=== PATIENT | female | born 1950 | race Caucasian/White ===

== ENCOUNTER 2022-07-04 01:57 | Emergency (ER) | payer SELFPAY ==
[~2022-07-04] VITALS: Ht 167.6 cm; Wt 82.0 kg
[2022-07-04 02:02] VITALS: BP 133/58
== END 2022-07-04 03:31 | disposition left against medical advice (07) ==
LOC: ER 02:31
DX: R51.9 Headache, unspecified (principal); I10 Essential (primary) hypertension; E11.9 Type 2 diabetes mellitus without complications; Z86.73 Personal history of transient ischemic attack (TIA), and cerebral infarction without residual deficits
CPT/HCPCS: 93005; 99283

== ENCOUNTER 2022-07-27 17:37 | Inpatient (IN) | payer MEDICARE, MEDICAID ==
[~2022-07-27] VITALS: Ht 160 cm; Wt 73.0 kg
[2022-07-27] MEDS ORDERED: MORPHINE SULFATE 4 MG/ML CPJ (NOT FOR IM USE) IV ONE (18:45)
[2022-07-27 18:59] LABS: BASOPHILS % 1.4 % (0.0-2.0); EOSINOPHILS % 2.4 % (0.0-5.0); HEMATOCRIT. 42.5 % (36.0-48.0); HEMOGLOBIN. 14.3 g/dL (12.0-16.0); LYMPHOCYTES % 23.7 % (20.0-50.0); MEAN CORPUSCULAR HEMOGLOBIN 29.1 pg (28.0-32.0); MEAN CORPUSCULAR VOLUME 86.7 fL (81.0-99.0); MEAN PLATELET VOLUME 8.3 fl (7.4-10.4); MONOCYTES % 6.2 % (2.0-8.0); NEUTROPHILS % 66.3 % (40.0-76.0); PLATELET 212 x1000/uL (130-400); RED CELL DISTRIBUTION WIDTH 17.1 % (11.6-14.6)
[2022-07-27 19:10] LABS: CHLORIDE 112 mEq/L (98-107)
[2022-07-27] MEDS ORDERED: KETOROLAC 15MG/ML VIAL IV ONE (22:00)
[2022-07-27] MEDS ORDERED: SODIUM CHLORIDE 0.9% 1,000 ML IV ONE (22:30)
[2022-07-27] MEDS ORDERED: MECLIZINE 25MG TABLET PO ONE (22:30)
[2022-07-27] MEDS ORDERED: IOHEXOL-300 100 ML BOTTLE ONE (23:25)
[2022-07-28] MEDS ORDERED: MAGNESIUM/ALUMINUM HYDROXIDE/SIMETHICONE 30ML UDC PO PRN (01:15)
[2022-07-28] MEDS ORDERED: GUAIFENESIN 200MG/10ML SUGAR FREE UDC PO PRN (01:15)
[2022-07-28] MEDS ORDERED: ACETAMINOPHEN 325MG TABLET PO PRN ×2 (01:15)
[2022-07-28] MEDS ORDERED: IPRATROPIUM/ALBUTEROL 0.5-3(2.5)MG/3ML NEB NEB PRN (01:15)
[2022-07-28] MEDS ORDERED: CLONIDINE 0.1MG TABLET PO PRN (01:15)
[2022-07-28] MEDS ORDERED: ONDANSETRON HCL 4MG/2ML INJ IV PRN (01:15)
[2022-07-28] MEDS ORDERED: NALOXONE HCL 0.4MG/ML VIAL IV PRN (01:45)
[2022-07-28 03:55] LABS: BASOPHILS % 0.5 % (0.0-2.0); EOSINOPHILS % 3.5 % (0.0-5.0); HEMATOCRIT. 44.5 % (36.0-48.0); HEMOGLOBIN. 14.6 g/dL (12.0-16.0); LYMPHOCYTES % 27.2 % (20.0-50.0); MEAN CORPUSCULAR HEMOGLOBIN 28.8 pg (28.0-32.0); MEAN CORPUSCULAR VOLUME 87.8 fL (81.0-99.0); MEAN PLATELET VOLUME 8.6 fl (7.4-10.4); MONOCYTES % 8.3 % (2.0-8.0); NEUTROPHILS % 60.5 % (40.0-76.0); PLATELET 213 x1000/uL (130-400); RED BLOOD CELL COUNT 5.07 mill/uL (4.2-5.4); RED CELL DISTRIBUTION WIDTH 17.3 % (11.6-14.6)
[2022-07-28 04:05] LABS: CHLORIDE 114 mEq/L (98-107)
[2022-07-28 04:21] LABS: PHOSPHORUS 3.4 mg/dL (2.5-4.9); T4 FREE 0.82 ng/dL (0.76-1.46)
[2022-07-28] MEDS ORDERED: MECLIZINE 25MG TABLET PO SCH (08:00)
[2022-07-28] MEDS ORDERED: KETOROLAC 15MG/ML VIAL IV SCH (08:00)
[2022-07-28 10:00] VITALS: BP 127/60
[2022-07-28] MEDS ORDERED: ENAL1TAB14 MT (11:12)
[2022-07-28] MEDS ORDERED: LANTUSUD SUBCUT (11:13)
[2022-07-28] MEDS ORDERED: METF-874 MT (11:13)
[2022-07-28] MEDS ORDERED: ATOR10TA69 MT (11:13)
[2022-07-28] MEDS ORDERED: DULA0.75 SQ (11:14)
[2022-07-28 12:00] VITALS: BP 127/60
[2022-07-28] MEDS: KETOROLAC 15MG/ML VIAL IV PRN ×2 (15:41→21:30)
[2022-07-28 16:00] VITALS: BP 132/60
[2022-07-28 20:00] VITALS: BP 130/69
[2022-07-28] MEDS ORDERED: MAGNESIUM HYDROXIDE 400MG/5ML 30ML UDC PO PRN (20:15)
[2022-07-28] MEDS ORDERED: SENNOSIDES/DOCUSATE SOD 8.6/50MG TABLET PO PRN (20:15)
[2022-07-28] MEDS ORDERED: POTASSIUM CHLORIDE 20MEQ TABLET SR PO NR (21:15)
[2022-07-28] MEDS: LORATADINE 10MG TABLET PO SCH (21:49)
[2022-07-29] VITALS: BP 114/85
[2022-07-29 04:00] VITALS: BP 121/82
[2022-07-29] MEDS: KETOROLAC 15MG/ML VIAL IV PRN ×2 (06:25→16:02)
[2022-07-29 08:00] VITALS: BP 132/61
[2022-07-29] MEDS: POLYETHYLENE GLYCOL 3350 (17GM) 1 DOSE PACK PO SCH (08:27)
[2022-07-29] MEDS ORDERED: DEXTROSE 50% WATER 50ML SYRINGE IV PRN (10:00)
[2022-07-29 12:00] VITALS: BP 143/79
[2022-07-29] MEDS: BLOOD SUGAR DIAGNOSTIC STRIP TEST SCH ×3 (13:01→21:00)
[2022-07-29] MEDS: INSULIN LISPRO 100 UNITS/ML SUBCUT SCH ×3 (13:30→20:41)
[2022-07-29 16:00] VITALS: BP 114/69
[2022-07-29 20:00] VITALS: BP 118/80
[2022-07-29] MEDS: ATORVASTATIN CALCIUM 10MG TABLET PO SCH (20:40)
[2022-07-29] MEDS: LORATADINE 10MG TABLET PO SCH (20:40)
[2022-07-30] VITALS: BP 135/78
[2022-07-30] MEDS ORDERED: SORBITOL 70% SOLN 30ML PO PRN (00:15)
[2022-07-30] MEDS: KETOROLAC 15MG/ML VIAL IV PRN ×3 (00:28→18:13)
[2022-07-30] MEDS: SENNOSIDES/DOCUSATE SOD 8.6/50MG TABLET PO SCH ×3 (00:33→17:00)
[2022-07-30 04:00] VITALS: BP 128/90
[2022-07-30 06:50] LABS: BASOPHILS % 0.6 % (0.0-2.0); EOSINOPHILS % 5.6 % (0.0-5.0); HEMATOCRIT. 46.3 % (36.0-48.0); HEMOGLOBIN. 15.1 g/dL (12.0-16.0); LYMPHOCYTES % 26.8 % (20.0-50.0); MEAN CORPUSCULAR HEMOGLOBIN 28.8 pg (28.0-32.0); MEAN CORPUSCULAR VOLUME 88.5 fL (81.0-99.0); MEAN PLATELET VOLUME 8.9 fl (7.4-10.4); MONOCYTES % 7.1 % (2.0-8.0); NEUTROPHILS % 59.9 % (40.0-76.0); PLATELET 206 x1000/uL (130-400); RED BLOOD CELL COUNT 5.24 mill/uL (4.2-5.4); RED CELL DISTRIBUTION WIDTH 16.9 % (11.6-14.6)
[2022-07-30] MEDS: BLOOD SUGAR DIAGNOSTIC STRIP TEST SCH ×4 (07:20→21:00)
[2022-07-30 08:00] VITALS: BP 141/71
[2022-07-30 08:15] LABS: CHLORIDE 110 mEq/L (98-107)
[2022-07-30 08:23] LABS: HDL CHOLESTEROL 38 mg/dL (40-59); LDL CHOLESTEROL 106 mg/dL (5-100); PHOSPHORUS 2.6 mg/dL (2.5-4.9)
[2022-07-30] MEDS: POLYETHYLENE GLYCOL 3350 (17GM) 1 DOSE PACK PO SCH (09:28)
[2022-07-30] MEDS: HYDROCODONE/ACETAMINOPHEN 5/325MG TABLET PO PRN ×2 (09:28→09:32)
[2022-07-30] MEDS: INSULIN LISPRO 100 UNITS/ML SUBCUT SCH ×3 (11:06→18:21)
[2022-07-30 12:00] VITALS: BP 124/67
[2022-07-30 16:00] VITALS: BP 102/54
[2022-07-30] MEDS ORDERED: DICL100G31 TP (17:13)
[2022-07-30] MEDS ORDERED: DICL50TA9 PO (17:13)
[2022-07-30] MEDS ORDERED: TOPUD PO (17:13)
[2022-07-30] MEDS: LORATADINE 10MG TABLET PO SCH (20:59)
[2022-07-30] MEDS: ATORVASTATIN CALCIUM 10MG TABLET PO SCH (21:00)
[2022-07-30 21:51] VITALS: BP 102/54
[2022-08-01 15:08] LABS: FOLIC ACID (FOLATE) SERUM 12.8 ng/mL (>5.38)
== END 2022-07-30 23:06 | disposition home health service (06) | DRG 641 ==
LOC: ER 17:37 → 6EST 07-28 01:01 → SUPCPDRO 07-28 01:03 → EDBEDREQSVC 07-28 01:07 → EDBEDREQTM 07-28 01:07 → EDBEDREQ 07-28 01:07
PROVIDERS: ADMIT Internal Medicine; ATTEND Internal Medicine
DX: E86.0 Dehydration (principal); M25.511 Pain in right shoulder; M25.521 Pain in right elbow; M48.02 Spinal stenosis, cervical region; I10 Essential (primary) hypertension; E78.00 Pure hypercholesterolemia, unspecified; Z20.822 Contact with and (suspected) exposure to COVID-19; E11.9 Type 2 diabetes mellitus without complications; G89.4 Chronic pain syndrome; M48.03 Spinal stenosis, cervicothoracic region; M51.36 Other intervertebral disc degeneration, lumbar region; R26.89 Other abnormalities of gait and mobility; M48.061 Spinal stenosis, lumbar region without neurogenic claudication; J44.9 Chronic obstructive pulmonary disease, unspecified; M25.78 Osteophyte, vertebrae; Z90.49 Acquired absence of other specified parts of digestive tract; Z98.1 Arthrodesis status; Z86.79 Personal history of other diseases of the circulatory system; Z86.73 Personal history of transient ischemic attack (TIA), and cerebral infarction without residual deficits; W18.30XA Fall on same level, unspecified, initial encounter; Y93.89 Activity, other specified; Y92.89 Other specified places as the place of occurrence of the external cause; Y99.8 Other external cause status
CPT/HCPCS: 36415; 70486; 71045; 71260; 72141; 72146; 72148; 72170; 73030; 73080; 73090; 73110; 73120; 73630; 74177; 80048; 80053; 80061; 82607; 82746; 82962; 83036; 83735; 83880; 84100; 84439; 84443; 84484; 85025; 87426; 93005; 99291; J1815; J1885; J2270; J7030; J8597; Q9967

== ENCOUNTER 2022-10-02 13:30 | Inpatient (IN) | payer MEDICARE, MEDICAID ==
[~2022-10-02] VITALS: Ht 157.5 cm; Wt 71.2 kg
[~2022-10-02 13:30] MED LIST: ATOR10TA69 MT; DICL100G31 TP; DICL50TA9 PO; DULA0.75 SQ; ENAL1TAB14 MT; LANTUSUD SUBCUT; METF-874 MT; TOPUD PO
[2022-10-02] MEDS ORDERED: ACETAMINOPHEN 325MG TABLET PO ONE (14:00)
[2022-10-02 15:57] LABS: CLARITY URINE CLEAR (CLEAR); COLOR URINE YELLOW (YELLOW); KETONES URINE TRACE (NEGATIVE); LEUKOCYTE ESTERASE URINE TRACE (NEGATIVE); NITRITE URINE NEGATIVE (NEGATIVE); OCCULT BLOOD URINE NEGATIVE (NEGATIVE); PROTEIN URINE NEGATIVE (NEGATIVE); SPECIFIC GRAVITY URINE 1.031 (1.005-1.030); UROBILINOGEN URINE 0.2 E.U./dL (0.2-1.0)
[2022-10-02] MEDS ORDERED: ACETAMINOPHEN 325MG TABLET PO NR (16:00)
[2022-10-02 16:13] LABS: BASOPHILS % 0.4 % (0.0-2.0); EOSINOPHILS % 1.9 % (0.0-5.0); HEMATOCRIT. 41.6 % (36.0-48.0); HEMOGLOBIN. 13.8 g/dL (12.0-16.0); LYMPHOCYTES % 20.8 % (20.0-50.0); MEAN CORPUSCULAR HEMOGLOBIN 30.3 pg (28.0-32.0); MEAN CORPUSCULAR VOLUME 91.5 fL (81.0-99.0); MEAN PLATELET VOLUME 8.6 fl (7.4-10.4); MONOCYTES % 8.5 % (2.0-8.0); NEUTROPHILS % 68.4 % (40.0-76.0); PLATELET 217 x1000/uL (130-400); RED BLOOD CELL COUNT 4.54 mill/uL (4.2-5.4); RED CELL DISTRIBUTION WIDTH 16.2 % (11.6-14.6)
[2022-10-02 16:18] LABS: CHLORIDE 107 mEq/L (98-107)
[2022-10-02 16:21] LABS: *AMPHETAMINES SCREEN URINE NEGATIVE (NEGATIVE); *BARBITURATES SCREEN URINE NEGATIVE (NEGATIVE); *BENZODIAZEPINES SCREEN URINE NEGATIVE (NEGATIVE); *COCAINE SCREEN URINE NEGATIVE (NEGATIVE); CANNABINOID URINE SCREEN NEGATIVE (NEGATIVE); METHADONE URINE SCREEN NEGATIVE (NEGATIVE); OPIATES URINE SCREEN PRESUMTIVE POSITIVE (NEGATIVE); PHENCYCLIDINE URINE SCREEN NEGATIVE (NEGATIVE)
[2022-10-02 17:36] LABS: CREATINE KINASE 409 IU/L (26-192)
[2022-10-02 17:46] LABS: ETHANOL BLOOD < 10 mg/dL
[2022-10-02] MEDS: INSULIN LISPRO 100 UNITS/ML SUBCUT SCH (18:20)
[2022-10-02] MEDS ORDERED: MAGNESIUM/ALUMINUM HYDROXIDE/SIMETHICONE 30ML UDC PO PRN (18:30)
[2022-10-02] MEDS ORDERED: DOCUSATE SODIUM 100MG CAPSULE PO PRN (18:30)
[2022-10-02] MEDS ORDERED: IPRATROPIUM/ALBUTEROL 0.5-3(2.5)MG/3ML NEB NEB PRN (18:30)
[2022-10-02] MEDS ORDERED: DEXTROSE 50% WATER 50ML SYRINGE IV PRN (18:30)
[2022-10-02] MEDS ORDERED: GUAIFENESIN 200MG/10ML SUGAR FREE UDC PO PRN (18:30)
[2022-10-02] MEDS ORDERED: CLONIDINE 0.1MG TABLET PO PRN (18:30)
[2022-10-02] MEDS ORDERED: CEFTRIAXONE 1 G PREMIX 50 ML IV SCH (18:30)
[2022-10-02] MEDS ORDERED: ACETAMINOPHEN 325MG TABLET PO PRN ×2 (18:30)
[2022-10-02] MEDS ORDERED: NALOXONE HCL 0.4MG/ML VIAL IV PRN (18:45)
[2022-10-02] MEDS: ENOXAPARIN 40MG/0.4ML SYR SUBCUT SCH (20:28)
[2022-10-02 23:08] VITALS: BP 161/90
[2022-10-02 23:13] VITALS: BP 161/90
[2022-10-03] VITALS (8 sets, daily range): BP systolic 128–188; BP diastolic 52–107
[2022-10-03] MEDS: BLOOD SUGAR DIAGNOSTIC STRIP TEST SCH ×4 (06:52→21:00)
[2022-10-03] MEDS: INSULIN LISPRO 100 UNITS/ML SUBCUT SCH ×4 (06:53→21:00)
[2022-10-03 08:18] LABS: BASOPHILS % 0.6 % (0.0-2.0); EOSINOPHILS % 5.7 % (0.0-5.0); HEMATOCRIT. 40.4 % (36.0-48.0); HEMOGLOBIN. 13.5 g/dL (12.0-16.0); LYMPHOCYTES % 32.5 % (20.0-50.0); MEAN CORPUSCULAR HEMOGLOBIN 30.2 pg (28.0-32.0); MEAN CORPUSCULAR VOLUME 90.5 fL (81.0-99.0); MONOCYTES % 8.2 % (2.0-8.0); PLATELET 190 x1000/uL (130-400); RED BLOOD CELL COUNT 4.47 mill/uL (4.2-5.4); RED CELL DISTRIBUTION WIDTH 16.4 % (11.6-14.6)
[2022-10-03] MEDS: HYDROCODONE/ACETAMINOPHEN 5/325MG TABLET PO PRN ×2 (08:36→16:06)
[2022-10-03 09:55] LABS: CHLORIDE 107 mEq/L (98-107)
[2022-10-03 10:15] LABS: T4 FREE 0.97 ng/dL (0.76-1.46)
[2022-10-03 10:28] LABS: VITAMIN B12 SERUM 395 pg/mL (211-911)
[2022-10-03] MEDS ORDERED: POTASSIUM CHLORIDE 20MEQ TABLET SR PO NR (10:30)
[2022-10-03] MEDS: DICLOFENAC SODIUM 1% GEL 50GM TOP SCH ×4 (10:50→20:50)
[2022-10-03] MEDS ORDERED: *PATIENT'S OWN MEDICATION STORAGE XX SCH (15:45)
[2022-10-03] MEDS: LIDOCAINE 5% PATCH TOP SCH (16:27)
[2022-10-03] MEDS ORDERED: MORPHINE SULFATE 2 MG/ML CPJ (NOT FOR IM USE) IV NR (16:47)
[2022-10-03] MEDS: CEFTRIAXONE 1,000 MG in DEXTROSE 5% WATER 50 ML IV SCH (17:45)
[2022-10-03] MEDS: HYDROCODONE/ACETAMINOPHEN 10/325MG TABLET PO PRN (20:49)
[2022-10-03] MEDS: ENOXAPARIN 40MG/0.4ML SYR SUBCUT SCH (20:50)
[2022-10-03] MEDS ORDERED: PNEUMOCOCCAL 23-VAL P-SAC VAC 0.5 ML IM ONE (21:00)
[2022-10-04] VITALS: BP 146/65
[2022-10-04] MEDS ORDERED: MORPHINE SULFATE 2 MG/ML CPJ (NOT FOR IM USE) IV NR
[2022-10-04] MEDS: HYDROCODONE/ACETAMINOPHEN 10/325MG TABLET PO PRN ×3 (02:51→16:09)
[2022-10-04 04:00] VITALS: BP 175/76
[2022-10-04] MEDS: HYDROCODONE/ACETAMINOPHEN 5/325MG TABLET PO PRN ×2 (05:42→10:43)
[2022-10-04] MEDS: BLOOD SUGAR DIAGNOSTIC STRIP TEST SCH ×4 (06:31→21:33)
[2022-10-04] MEDS: INSULIN LISPRO 100 UNITS/ML SUBCUT SCH ×4 (06:58→21:33)
[2022-10-04 07:53] LABS: BASOPHILS % 0.7 % (0.0-2.0); EOSINOPHILS % 6.2 % (0.0-5.0); HEMOGLOBIN. 13.4 g/dL (12.0-16.0); LYMPHOCYTES % 40.4 % (20.0-50.0); MEAN CORPUSCULAR HEMOGLOBIN 30.3 pg (28.0-32.0); MEAN CORPUSCULAR VOLUME 90.5 fL (81.0-99.0); MEAN PLATELET VOLUME 8.8 fl (7.4-10.4); MONOCYTES % 10.2 % (2.0-8.0); NEUTROPHILS % 42.5 % (40.0-76.0); PLATELET 193 x1000/uL (130-400); RED BLOOD CELL COUNT 4.42 mill/uL (4.2-5.4); RED CELL DISTRIBUTION WIDTH 16.1 % (11.6-14.6)
[2022-10-04 08:00] VITALS: BP 147/69
[2022-10-04 08:45] LABS: CHLORIDE 110 mEq/L (98-107)
[2022-10-04 08:52] LABS: CREATINE KINASE 236 IU/L (26-192)
[2022-10-04] MEDS: DICLOFENAC SODIUM 1% GEL 50GM TOP SCH ×4 (08:56→21:34)
[2022-10-04] MEDS: LIDOCAINE 5% PATCH TOP SCH (09:00)
[2022-10-04] MEDS ORDERED: AMLO10TA80 PO (09:09)
[2022-10-04] MEDS ORDERED: QUET50TA23 PO (09:12)
[2022-10-04] MEDS ORDERED: ENAL20TA18 PO (09:12)
[2022-10-04] MEDS ORDERED: AMIT75TA2 PO (09:12)
[2022-10-04] MEDS ORDERED: PREG75CA75 PO (09:12)
[2022-10-04] MEDS ORDERED: MIRT-89 PO (09:12)
[2022-10-04] MEDS: AMLODIPINE 10MG TABLET PO SCH (09:46)
[2022-10-04 12:00] VITALS: BP 136/62
[2022-10-04] MEDS: GABAPENTIN 300MG CAPSULE PO SCH ×2 (13:11→21:32)
[2022-10-04] MEDS ORDERED: POLY119P2 MT (15:53)
[2022-10-04] MEDS ORDERED: HYDR-4009 PO (15:53)
[2022-10-04] MEDS ORDERED: SENN-178 MT (15:53)
[2022-10-04] MEDS ORDERED: ATOR10TA69 MT (15:53)
[2022-10-04] MEDS ORDERED: DICL100G31 TP (15:53)
[2022-10-04] MEDS ORDERED: DICL50TA9 PO (15:53)
[2022-10-04] MEDS ORDERED: LIDO700A30 TOP (15:53)
[2022-10-04 16:00] VITALS: BP 118/93
[2022-10-04] MEDS: CEFTRIAXONE 1,000 MG in DEXTROSE 5% WATER 50 ML IV SCH (17:15)
[2022-10-04 20:00] VITALS: BP 144/66
[2022-10-04] MEDS ORDERED: ENALAPRIL 5MG TABLET PO SCH (21:00)
[2022-10-04] MEDS: ENOXAPARIN 40MG/0.4ML SYR SUBCUT SCH (21:31)
[2022-10-04] MEDS: LISINOPRIL 40MG TABLET PO SCH (21:31)
[2022-10-04] MEDS: ONDANSETRON HCL 4MG/2ML INJ IV PRN (21:31)
[2022-10-05] VITALS: BP 119/81
[2022-10-05] MEDS: HYDROCODONE/ACETAMINOPHEN 10/325MG TABLET PO PRN ×2 (01:07→10:24)
[2022-10-05 04:00] VITALS: BP 120/54
[2022-10-05] MEDS: GABAPENTIN 300MG CAPSULE PO SCH ×3 (06:33→21:19)
[2022-10-05] MEDS: INSULIN LISPRO 100 UNITS/ML SUBCUT SCH ×3 (06:33→17:35)
[2022-10-05] MEDS: BLOOD SUGAR DIAGNOSTIC STRIP TEST SCH ×3 (06:42→16:42)
[2022-10-05 08:00] VITALS: BP 131/62
[2022-10-05] MEDS: ONDANSETRON HCL 4MG/2ML INJ IV PRN (08:59)
[2022-10-05] MEDS: AMLODIPINE 10MG TABLET PO SCH (09:44)
[2022-10-05] MEDS: DICLOFENAC SODIUM 1% GEL 50GM TOP SCH ×4 (09:44→21:20)
[2022-10-05] MEDS: LIDOCAINE 5% PATCH TOP SCH (09:48)
[2022-10-05 12:00] VITALS: BP 108/73
[2022-10-05 16:00] VITALS: BP 114/65
[2022-10-05] MEDS: CEFTRIAXONE 1,000 MG in DEXTROSE 5% WATER 50 ML IV SCH (17:34)
[2022-10-05 20:00] VITALS: BP 118/70
[2022-10-05] MEDS: ENOXAPARIN 40MG/0.4ML SYR SUBCUT SCH (21:20)
[2022-10-05] MEDS: LISINOPRIL 40MG TABLET PO SCH (21:20)
[2022-10-06] VITALS (7 sets, daily range): BP systolic 100–121; BP diastolic 53–70
[2022-10-06 02:41] LABS: CLARITY URINE CLEAR (CLEAR); COLOR URINE YELLOW (YELLOW); KETONES URINE 1+ (NEGATIVE); LEUKOCYTE ESTERASE URINE NEGATIVE (NEGATIVE); NITRITE URINE NEGATIVE (NEGATIVE); OCCULT BLOOD URINE NEGATIVE (NEGATIVE); PH URINE 6.5 (4.5-8.0); PROTEIN URINE NEGATIVE (NEGATIVE); SPECIFIC GRAVITY URINE 1.022 (1.005-1.030); UROBILINOGEN URINE 0.2 E.U./dL (0.2-1.0)
[2022-10-06] MEDS: GABAPENTIN 300MG CAPSULE PO SCH ×3 (06:24→21:18)
[2022-10-06] MEDS: HYDROCODONE/ACETAMINOPHEN 10/325MG TABLET PO PRN ×3 (06:24→21:19)
[2022-10-06 06:45] LABS: BASOPHILS % 0.4 % (0.0-2.0); EOSINOPHILS % 6.3 % (0.0-5.0); HEMATOCRIT. 43.7 % (36.0-48.0); HEMOGLOBIN. 14.3 g/dL (12.0-16.0); LYMPHOCYTES % 30.3 % (20.0-50.0); MEAN CORPUSCULAR HEMOGLOBIN 29.8 pg (28.0-32.0); MEAN CORPUSCULAR VOLUME 91.1 fL (81.0-99.0); MEAN PLATELET VOLUME 8.6 fl (7.4-10.4); PLATELET 187 x1000/uL (130-400); RED CELL DISTRIBUTION WIDTH 15.9 % (11.6-14.6)
[2022-10-06] MEDS ORDERED: *PATIENT'S OWN MEDICATION STORAGE XX SCH (07:00)
[2022-10-06 07:23] LABS: CHLORIDE 108 mEq/L (98-107)
[2022-10-06 07:28] LABS: PHOSPHORUS 3.3 mg/dL (2.5-4.9)
[2022-10-06] MEDS ORDERED: FLUCONAZOLE 100MG TABLET PO SCH (09:00)
[2022-10-06] MEDS: AMLODIPINE 10MG TABLET PO SCH (09:00)
[2022-10-06] MEDS: DICLOFENAC SODIUM 1% GEL 50GM TOP SCH ×4 (09:01→21:20)
[2022-10-06] MEDS: LIDOCAINE 5% PATCH TOP SCH (09:01)
[2022-10-06] MEDS: LISINOPRIL 40MG TABLET PO SCH (21:00)
[2022-10-06] MEDS: ENOXAPARIN 40MG/0.4ML SYR SUBCUT SCH (21:20)
== END 2022-10-06 22:16 | DRG 74 ==
LOC: ER 13:30 → 7EST 17:58 → EDBEDREQTM 18:08 → EDBEDREQ 18:08 → ENRESERV 20:00
PROVIDERS: ADMIT Internal Medicine; ATTEND Internal Medicine
DX: G90.8 Other disorders of autonomic nervous system (principal); S32.029A Unspecified fracture of second lumbar vertebra, initial encounter for closed fracture; M48.061 Spinal stenosis, lumbar region without neurogenic claudication; M47.896 Other spondylosis, lumbar region; M48.02 Spinal stenosis, cervical region; E10.9 Type 1 diabetes mellitus without complications; G89.29 Other chronic pain; M79.639 Pain in unspecified forearm; I10 Essential (primary) hypertension; E78.00 Pure hypercholesterolemia, unspecified; E78.5 Hyperlipidemia, unspecified; R53.81 Other malaise; Z79.899 Other long term (current) drug therapy; M47.819 Spondylosis without myelopathy or radiculopathy, site unspecified; K57.90 Diverticulosis of intestine, part unspecified, without perforation or abscess without bleeding; S62.306A Unspecified fracture of fifth metacarpal bone, right hand, initial encounter for closed fracture; Z87.891 Personal history of nicotine dependence; Z86.73 Personal history of transient ischemic attack (TIA), and cerebral infarction without residual deficits; Z86.79 Personal history of other diseases of the circulatory system; Z90.49 Acquired absence of other specified parts of digestive tract; Z98.1 Arthrodesis status; Z82.49 Family history of ischemic heart disease and other diseases of the circulatory system; W06.XXXA Fall from bed, initial encounter; Y93.89 Activity, other specified; Y92.003 Bedroom of unspecified non-institutional (private) residence as the place of occurrence of the external cause; Y99.8 Other external cause status
CPT/HCPCS: 36415; 71045; 72148; 72192; 73030; 73090; 73110; 73130; 73502; 73700; 74176; 80048; 80053; 80305; 80320; 81003; 82550; 82607; 82962; 83036; 83735; 83880; 84100; 84145; 84439; 84443; 85025; 87106; 90732; 93005; 97162; 97166; 99285; J0696; J1650; J1815; J2270; J2405; J7060; A4315; G0480

== ENCOUNTER 2023-02-28 21:57 | Emergency (ER) | payer MEDICARE, MEDICAID ==
[~2023-02-28] VITALS: Ht 160 cm; Wt 67.0 kg
[~2023-02-28 21:57] MED LIST changes: +AMIT75TA2 PO; +AMLO10TA80 PO; -ENAL1TAB14 MT; +ENAL20TA18 PO; +HYDR-4009 PO; +LIDO700A30 TOP; +MIRT-89 PO; +POLY119P2 MT; +PREG75CA75 PO; +QUET50TA23 PO; +SENN-178 MT
[2023-02-28] MEDS ORDERED: DIPHENHYDRAMINE 50MG/ML VIAL IV ONE (22:30)
[2023-02-28] MEDS ORDERED: METOCLOPRAMIDE HCL 10MG/2ML VIAL IV ONE (22:30)
[2023-02-28 22:54] LABS: BASOPHILS % 0.3 % (0.0-2.0); EOSINOPHILS % 4.1 % (0.0-5.0); HEMATOCRIT. 45.8 % (36.0-48.0); HEMOGLOBIN. 15.6 g/dL (12.0-16.0); LYMPHOCYTES % 23.9 % (20.0-50.0); MEAN CORPUSCULAR HEMOGLOBIN 30.7 pg (28.0-32.0); MEAN PLATELET VOLUME 8.7 fl (7.4-10.4); MONOCYTES % 7.3 % (2.0-8.0); NEUTROPHILS % 64.4 % (40.0-76.0); PLATELET 192 x1000/uL (130-400); RED BLOOD CELL COUNT 5.09 mill/uL (4.2-5.4); RED CELL DISTRIBUTION WIDTH 17.3 % (11.6-14.6)
[2023-02-28 22:56] LABS: CHLORIDE 110 mEq/L (98-107)
[2023-03-01 00:30] VITALS: BP 159/74
== END 2023-03-01 04:06 | disposition home or self-care (01) ==
LOC: ER 21:57
DX: R51.9 Headache, unspecified (principal); I10 Essential (primary) hypertension; E11.9 Type 2 diabetes mellitus without complications; E78.00 Pure hypercholesterolemia, unspecified; Z86.73 Personal history of transient ischemic attack (TIA), and cerebral infarction without residual deficits; Z79.899 Other long term (current) drug therapy
CPT/HCPCS: 36415; 70450; 71045; 80053; 84484; 85025; 93005; 96374; 96375; 99285; J1200; J2765

== ENCOUNTER 2023-04-29 15:16 | Emergency (ER) | payer MEDICARE, MEDICAID ==
[~2023-04-29] VITALS: Ht 162.6 cm; Wt 70.0 kg
[~2023-04-29 15:16] MED LIST changes: +ENAL-79 PO; -ENAL20TA18 PO
[2023-04-29 16:01] LABS: BASOPHILS % 0.5 % (0.0-2.0); EOSINOPHILS % 2.1 % (0.0-5.0); HEMATOCRIT. 49.7 % (36.0-48.0); HEMOGLOBIN. 16.7 g/dL (12.0-16.0); LYMPHOCYTES % 21.4 % (20.0-50.0); MEAN CORPUSCULAR HEMOGLOBIN 31.7 pg (28.0-32.0); MEAN CORPUSCULAR VOLUME 94.2 fL (81.0-99.0); MEAN PLATELET VOLUME 8.9 fl (7.4-10.4); MONOCYTES % 6.5 % (2.0-8.0); NEUTROPHILS % 69.5 % (40.0-76.0); PLATELET 228 x1000/uL (130-400); RED BLOOD CELL COUNT 5.28 mill/uL (4.2-5.4); RED CELL DISTRIBUTION WIDTH 15.4 % (11.6-14.6)
[2023-04-29 16:08] LABS: CHLORIDE 108 mEq/L (98-107)
[2023-04-29] MEDS ORDERED: ONDANSETRON 4MG ODT PO ONE (16:45)
[2023-04-29] MEDS ORDERED: ONDA4TAB50 MT (17:46)
[2023-04-29 18:10] VITALS: BP 129/96
[2023-04-30] MEDS ORDERED: DIPH1TAB24 MT (22:11)
[2023-04-30] MEDS ORDERED: ONDA4TAB50 MT (22:11)
[2023-04-30] MEDS ORDERED: TOPUD PO (22:11)
== END 2023-04-29 18:25 | disposition home or self-care (01) ==
LOC: ER 15:16
DX: K52.9 Noninfective gastroenteritis and colitis, unspecified (principal); E11.9 Type 2 diabetes mellitus without complications; E78.00 Pure hypercholesterolemia, unspecified; I10 Essential (primary) hypertension; Z86.73 Personal history of transient ischemic attack (TIA), and cerebral infarction without residual deficits; Z79.899 Other long term (current) drug therapy
CPT/HCPCS: 36415; 80053; 83690; 85025; 99283; Q0162

== ENCOUNTER 2023-04-30 15:17 | Emergency (ER) | payer MEDICARE, MEDICAID ==
[~2023-04-30] VITALS: Ht 152.4 cm; Wt 63.0 kg
[~2023-04-30 15:17] MED LIST changes: +ONDA4TAB50 MT
[2023-04-30] MEDS ORDERED: SODIUM CHLORIDE 0.9% 1000ML BAG (SEPSIS BOLUS) IV ONE (16:15)
[2023-04-30] MEDS ORDERED: CEFTRIAXONE SODIUM 1 G/VIAL IM ONE (16:15)
[2023-04-30 16:40] LABS: BASOPHILS % 0.6 % (0.0-2.0); HEMOGLOBIN. 15.8 g/dL (12.0-16.0); LYMPHOCYTES % 33.8 % (20.0-50.0); MEAN CORPUSCULAR HEMOGLOBIN 31.7 pg (28.0-32.0); MEAN CORPUSCULAR VOLUME 94.6 fL (81.0-99.0); MEAN PLATELET VOLUME 8.5 fl (7.4-10.4); NEUTROPHILS % 53.6 % (40.0-76.0); PLATELET 207 x1000/uL (130-400); RED BLOOD CELL COUNT 4.97 mill/uL (4.2-5.4); RED CELL DISTRIBUTION WIDTH 15.3 % (11.6-14.6)
[2023-04-30 16:44] LABS: PROTHROMBIN TIME 10.9 sec (9.6-11.0)
[2023-04-30 16:47] LABS: CHLORIDE 110 mEq/L (98-107)
[2023-04-30] MEDS ORDERED: CEFTRIAXONE 1GM PREMIX 50ML IV NR (17:15)
[2023-04-30] MEDS ORDERED: TOPUD PO (22:11)
[2023-04-30] MEDS ORDERED: DIPH1TAB24 MT (22:11)
[2023-04-30] MEDS ORDERED: ONDA4TAB50 MT (22:11)
[2023-04-30 22:24] VITALS: BP 158/87
== END 2023-04-30 22:37 | disposition home or self-care (01) ==
LOC: ER 15:17
DX: R19.7 Diarrhea, unspecified (principal); I10 Essential (primary) hypertension; E78.00 Pure hypercholesterolemia, unspecified; E11.9 Type 2 diabetes mellitus without complications; Z98.890 Other specified postprocedural states; Z20.822 Contact with and (suspected) exposure to COVID-19; Z79.899 Other long term (current) drug therapy; Z86.73 Personal history of transient ischemic attack (TIA), and cerebral infarction without residual deficits
CPT/HCPCS: 36415; 71045; 80053; 82962; 83605; 84145; 85025; 85610; 87040; 87426; 96365; 96366; 99284; C9803; J0696; J7030

== ENCOUNTER 2023-08-08 11:47 | Emergency (ER) | payer MEDICARE, MEDICAID ==
[~2023-08-08] VITALS: Ht 162.6 cm; Wt 78.0 kg
[~2023-08-08 11:47] MED LIST changes: -DICL100G31 TP; +DICL100G58 TP; +DIPH1TAB24 MT; -PREG75CA75 PO; +PREG75CA76 PO; -SENN-178 MT; +SENN-371 MT
[2023-08-08 11:50] VITALS: BP 158/90; PULSE 80; RESP 16; TEMP 98.3; O2SAT 96
[2023-08-08] MEDS ORDERED: HYDROCODONE/ACETAMINOPHEN 5/325MG TABLET PO ONE (15:15)
[2023-08-08] MEDS ORDERED: KETOROLAC 60MG/2ML VIAL IM ONE (15:15)
[2023-08-08] MEDS ORDERED: HYDR-4001 MT (17:11)
[2023-08-08] MEDS ORDERED: LIDO700A30 TOP (17:11)
[2023-08-08] MEDS ORDERED: DICL50TA9 PO (17:11)
== END 2023-08-08 19:31 | disposition home or self-care (01) ==
LOC: ER 11:47
DX: M47.816 Spondylosis without myelopathy or radiculopathy, lumbar region (principal); E11.9 Type 2 diabetes mellitus without complications; E78.00 Pure hypercholesterolemia, unspecified; I10 Essential (primary) hypertension; Z86.73 Personal history of transient ischemic attack (TIA), and cerebral infarction without residual deficits; Z79.899 Other long term (current) drug therapy; W06.XXXA Fall from bed, initial encounter; Y93.89 Activity, other specified; Y92.89 Other specified places as the place of occurrence of the external cause; Y99.8 Other external cause status
CPT/HCPCS: 72100; 96372; 99283

== ENCOUNTER 2023-09-08 02:03 | Emergency (ER) | payer MEDICARE, MEDICAID ==
[~2023-09-08] VITALS: Ht 162.6 cm; Wt 75.0 kg
[~2023-09-08 02:03] MED LIST changes: +HYDR-4001 MT
[2023-09-08 02:20] VITALS: O2SAT 99
[2023-09-08 03:06] LABS: BASOPHILS % 0.6 % (0.0-2.0); EOSINOPHILS % 4.8 % (0.0-5.0); HEMATOCRIT. 44.9 % (36.0-48.0); HEMOGLOBIN. 15.3 g/dL (12.0-16.0); LYMPHOCYTES % 24.5 % (20.0-50.0); MEAN CORPUSCULAR HEMOGLOBIN 31.9 pg (28.0-32.0); MEAN CORPUSCULAR HGB CONC 34.2 g/dL (31.0-37.0); MEAN CORPUSCULAR VOLUME 93.4 fL (81.0-99.0); MEAN PLATELET VOLUME 8.5 fl (7.4-10.4); MONOCYTES % 11.3 % (2.0-8.0); NEUTROPHILS % 58.8 % (40.0-76.0); PLATELET 167 x1000/uL (130-400); RED CELL DISTRIBUTION WIDTH 15.4 % (11.6-14.6); WHITE BLOOD COUNT 5.4 x1000/uL (4.5-11.0)
[2023-09-08 03:11] LABS: PROTHROMBIN TIME 10.6 sec (9.6-11.0)
[2023-09-08 03:20] LABS: CHLORIDE 112 mEq/L (98-107); INDEX HEMOLYSI 1 (1-3); INDEX ICTERIC 1 (1-4); INDEX LIPEMIC 1 (1-3); POTASSIUM 3.3 mEq/L (3.5-5.1); SODIUM 143 mEq/L (136-145)
[2023-09-08 03:30] LABS: ALANINE AMINOTRANSFERASE 30 IU/L (13-61); ALBUMIN 3.7 g/dL (3.4-5.0); ASPARTATE AMINOTRANSFERASE 33 IU/L (15-37); BILIRUBIN TOTAL 0.4 mg/dL (0.1-1.0); CALCIUM 8.6 mg/dL (8.5-10.1); CARBON DIOXIDE 24 mEq/L (21-32); CREATININE 0.6 mg/dL (0.6-1.3); GLUCOSE 174 mg/dL (70-105); PROTEIN TOTAL 7.3 g/dL (6.0-8.3); UREA NITROGEN BLOOD 13 mg/dL (7-21)
[2023-09-08] MEDS ORDERED: HYDROCODONE/ACETAMINOPHEN 5/325MG TABLET PO ONE (10:15)
[2023-09-08 11:10] LABS: CLARITY URINE CLOUDY (CLEAR); COLOR URINE YELLOW (YELLOW); GLUCOSE URINE 3+ (NEGATIVE); KETONES URINE NEGATIVE (NEGATIVE); LEUKOCYTE ESTERASE URINE NEGATIVE (NEGATIVE); NITRITE URINE NEGATIVE (NEGATIVE); OCCULT BLOOD URINE NEGATIVE (NEGATIVE); PROTEIN URINE TRACE (NEGATIVE); SPECIFIC GRAVITY URINE 1.045 (1.005-1.030)
[2023-09-08 11:23] VITALS: BP 145/84; PULSE 86; RESP 18; TEMP 98.2
[2023-09-08 11:27] LABS: BACTERIA URINE 4+; SQUAMOUS EPITHELIAL CELL URINE 1+ /lpf (RARE/1+); YEAST URINE NONE SEEN
== END 2023-09-08 11:24 | disposition home or self-care (01) ==
LOC: ER 02:29
DX: S40.811A Abrasion of right upper arm, initial encounter (principal); E11.9 Type 2 diabetes mellitus without complications; E78.00 Pure hypercholesterolemia, unspecified; I10 Essential (primary) hypertension; R42 Dizziness and giddiness; Z86.73 Personal history of transient ischemic attack (TIA), and cerebral infarction without residual deficits; Z79.899 Other long term (current) drug therapy; W18.39XA Other fall on same level, initial encounter; Y93.89 Activity, other specified; Y92.89 Other specified places as the place of occurrence of the external cause; Y99.8 Other external cause status
CPT/HCPCS: 36415; 71045; 72170; 73090; 74176; 80053; 81003; 85025; 99284

== ENCOUNTER 2023-11-22 22:51 | Emergency (ER) | payer MEDICARE, MEDICAID ==
[~2023-11-22] VITALS: Ht 165.1 cm; Wt 90.0 kg
[2023-11-22 23:15] VITALS: BP 176/82; PULSE 90; RESP 18; TEMP 98.5; O2SAT 99
[2023-11-23 00:37] LABS: BASOPHILS % 0.8 % (0.0-2.0); DIFFERENTIAL COMMENT 1; EOSINOPHILS % 1.8 % (0.0-5.0); HEMATOCRIT. 49.8 % (36.0-48.0); HEMOGLOBIN. 16.7 g/dL (12.0-16.0); LYMPHOCYTES % 35.6 % (20.0-50.0); MEAN CORPUSCULAR HEMOGLOBIN 32.3 pg (28.0-32.0); MEAN CORPUSCULAR HGB CONC 33.5 g/dL (31.0-37.0); MEAN CORPUSCULAR VOLUME 96.3 fL (81.0-99.0); MEAN PLATELET VOLUME 8.4 fl (7.4-10.4); MONOCYTES % 6.7 % (2.0-8.0); NEUTROPHILS % 55.1 % (40.0-76.0); PLATELET 207 x1000/uL (130-400); RED BLOOD CELL COUNT 5.17 mill/uL (4.2-5.4); RED CELL DISTRIBUTION WIDTH 15.7 % (11.6-14.6); WHITE BLOOD COUNT 8.2 x1000/uL (4.5-11.0)
[2023-11-23 00:42] LABS: ALANINE AMINOTRANSFERASE 21 IU/L (10-49); ALBUMIN 4.1 g/dL (3.2-4.8); ASPARTATE AMINOTRANSFERASE 21 IU/L (<34); BILIRUBIN TOTAL 0.2 mg/dL (0.1-1.0); CALCIUM 9.5 mg/dL (8.7-10.4); CARBON DIOXIDE 21 mEq/L (21-32); CHLORIDE 110 mEq/L (98-107); CREATININE 0.6 mg/dL (0.6-1.0); GLUCOSE 171 mg/dL (70-105); POTASSIUM 3.6 mEq/L (3.5-5.1); PROTEIN TOTAL 7.3 g/dL (6.0-8.3); SODIUM 142 mEq/L (136-145); TROPONIN I HIGH SENSITIVITY 8 ng/L (3.0-34); UREA NITROGEN BLOOD 11 mg/dL (9-23)
[2023-11-23 00:45] LABS: ETHANOL BLOOD < 10 mg/dL (<10)
== END 2023-11-23 07:12 | disposition home or self-care (01) ==
LOC: ER 22:51
DX: R73.9 Hyperglycemia, unspecified (principal); Z86.73 Personal history of transient ischemic attack (TIA), and cerebral infarction without residual deficits
CPT/HCPCS: 36415; 80053; 80320; 82962; 83880; 84484; 85025; 93005; 99284; G0480

== ENCOUNTER 2025-02-02 17:51 | Emergency (ER) | payer MEDICARE, MEDICAID ==
[~2025-02-02] VITALS: Ht 165.1 cm; Wt 78.0 kg
[~2025-02-02 17:51] MED LIST changes: -DICL100G58 TP; -DIPH1TAB24 MT; -HYDR-4009 PO; +IBUP-2030 MT; +METF-1150 MT; -METF-874 MT
[2025-02-02 17:56] VITALS: TEMP 35.9; O2SAT 98
[2025-02-02] MEDS: HYDROCODONE/ACETAMINOPHEN 7.5/325MG TABLET PO ONE (18:36)
[2025-02-02 20:01] LABS: BASOPHILS % 0.6 % (0.0-2.0); EOSINOPHILS % 3.3 % (0.0-5.0); HEMATOCRIT. 44.6 % (36.0-48.0); HEMOGLOBIN. 14.8 g/dL (12.0-16.0); LYMPHOCYTES % 30.8 % (20.0-50.0); MEAN CORPUSCULAR HEMOGLOBIN 32.3 pg (28.0-32.0); MEAN CORPUSCULAR HGB CONC 33.2 g/dL (31.0-37.0); MEAN CORPUSCULAR VOLUME 97.2 fL (81.0-99.0); MONOCYTES % 7.7 % (2.0-8.0); NEUTROPHILS % 57.6 % (40.0-76.0); PLATELET 188 x1000/uL (130-400); RED BLOOD CELL COUNT 4.59 mill/uL (4.2-5.4); RED CELL DISTRIBUTION WIDTH 14.9 % (11.6-14.6); WHITE BLOOD COUNT 8.3 x1000/uL (4.5-11.0)
[2025-02-02 20:04] LABS: CHLORIDE 108 mEq/L (98-107); POTASSIUM 4.2 mEq/L (3.5-5.1); SODIUM 142 mEq/L (136-145)
[2025-02-02 20:05] LABS: CALCIUM 9.9 mg/dL (8.7-10.4); CARBON DIOXIDE 25 mEq/L (21-32)
[2025-02-02 20:10] LABS: CREATININE 0.7 mg/dL (0.6-1.0); GLUCOSE 136 mg/dL (70-105); UREA NITROGEN BLOOD 18 mg/dL (9-23)
[2025-02-02 21:40] VITALS: BP 137/66; PULSE 82; RESP 18; O2SAT 98
[2025-02-02] MEDS: LORAZEPAM 0.5MG TABLET PO ONE (21:55)
== END 2025-02-02 21:59 | disposition home or self-care (01) ==
LOC: ER 18:11
DX: S09.90XA Unspecified injury of head, initial encounter (principal); M25.511 Pain in right shoulder; M25.551 Pain in right hip; I10 Essential (primary) hypertension; E78.5 Hyperlipidemia, unspecified; Z79.899 Other long term (current) drug therapy; E11.9 Type 2 diabetes mellitus without complications; Z79.84 Long term (current) use of oral hypoglycemic drugs; Z98.890 Other specified postprocedural states; W01.0XXA Fall on same level from slipping, tripping and stumbling without subsequent striking against object, initial encounter; Y93.89 Activity, other specified; Y92.89 Other specified places as the place of occurrence of the external cause; Y99.8 Other external cause status
CPT/HCPCS: 36415; 73030; 73502; 80048; 85025; 99284

== ENCOUNTER 2025-10-18 02:50 | Inpatient (IN) | payer MEDICARE, MEDICAID ==
[2025-10-18] VITALS (72 sets, daily range): BP systolic 105–190; BP diastolic 55–113; PULSE 66–102; RESP 14–31; TEMP 36.6–37.3076; O2SAT 99–100
[~2025-10-18] VITALS: Ht 154.9 cm; Wt 77.6 kg
[~2025-10-18 02:50] MED LIST changes: -AMIT75TA2 PO; +AMIT75TA6 PO; -DICL50TA9 PO; -DULA0.75 SQ; -HYDR-4001 MT; -IBUP-2030 MT; -LANTUSUD SUBCUT; -LIDO700A30 TOP; -ONDA4TAB50 MT; -TOPUD PO
[2025-10-18] MEDS ORDERED: VANCOMYCIN 1000MG/250ML 250 ML IV SCH (03:00)
[2025-10-18] MEDS ORDERED: MIDAZOLAM 100MG/100ML PMX 100 ML IV SCH (03:00)
[2025-10-18] MEDS: SODIUM CHLORIDE 0.9% (SEPSIS BOLUS) IV ONE (03:08)
[2025-10-18] MEDS: VANCOMYCIN 1G PREMIX 200 ML IV SCH (03:10)
[2025-10-18] MEDS: MIDAZOLAM 100MG/100ML PMX 100 ML IV PRN (03:19)
[2025-10-18 03:29] LABS: BASOPHILS % 0.2 % (0.0-2.0); EOSINOPHILS % 0.1 % (0.0-5.0); HEMATOCRIT. 54.0 % (36.0-48.0); HEMOGLOBIN. 17.3 g/dL (12.0-16.0); LYMPHOCYTES % 9.4 % (20.0-50.0); MEAN PLATELET VOLUME 9.5 fl (7.4-10.4); MONOCYTES % 9.6 % (2.0-8.0); NEUTROPHILS % 80.7 % (40.0-76.0); PLATELET 278 x1000/uL (130-400); RED BLOOD CELL COUNT 5.62 mill/uL (4.2-5.4); RED CELL DISTRIBUTION WIDTH 15.3 % (11.6-14.6)
[2025-10-18 03:41] LABS: INR 1.1
[2025-10-18 03:53] LABS: TROPONIN I HIGH SENSITIVITY 45 ng/L (3.0-34)
[2025-10-18 03:54] LABS: CLARITY URINE CLEAR (CLEAR); COLOR URINE YELLOW (YELLOW); GLUCOSE URINE NEGATIVE (NEGATIVE); KETONES URINE 2+ (NEGATIVE); LEUKOCYTE ESTERASE URINE NEGATIVE (NEGATIVE); NITRITE URINE NEGATIVE (NEGATIVE); OCCULT BLOOD URINE 1+ (NEGATIVE); PH URINE 6.5 (4.5-8.0); PROTEIN URINE 1+ (NEGATIVE); SPECIFIC GRAVITY URINE 1.015 (1.005-1.030); UROBILINOGEN URINE 1.0 E.U./dL (0.2-1.0)
[2025-10-18 04:00] LABS: *AMPHETAMINES SCREEN URINE NEGATIVE (NEGATIVE); *BARBITURATES SCREEN URINE NEGATIVE (NEGATIVE); *BENZODIAZEPINES SCREEN URINE NEGATIVE (NEGATIVE); *COCAINE SCREEN URINE NEGATIVE (NEGATIVE); METHADONE URINE SCREEN NEGATIVE (NEGATIVE)
[2025-10-18 04:01] LABS: CANNABINOID URINE SCREEN NEGATIVE (NEGATIVE); ECSTASY MDMA SCREEN URINE NEGATIVE (NEGATIVE); OPIATES URINE SCREEN NEGATIVE (NEGATIVE); PHENCYCLIDINE URINE SCREEN NEGATIVE (NEGATIVE)
[2025-10-18 04:11] LABS: CREATININE 0.8 mg/dL (0.6-1.0); UREA NITROGEN BLOOD 35 mg/dL (9-23)
[2025-10-18 04:13] LABS: ASPARTATE AMINOTRANSFERASE 48 IU/L (<34); BILIRUBIN DIRECT 0.3 mg/dL (<=3.0); BILIRUBIN TOTAL 1.1 mg/dL (0.1-1.0); PROTEIN TOTAL 7.3 g/dL (6.0-8.3)
[2025-10-18 05:26] LABS: WBC URINE 0-2 /hpf (0-2)
[2025-10-18 05:27] LABS: BACTERIA URINE NONE SEEN; SQUAMOUS EPITHELIAL CELL URINE NONE SEEN /lpf (RARE/1+)
[2025-10-18] MEDS ORDERED: IPRATROPIUM/ALBUTEROL 0.5-3(2.5)MG/3ML NEB NEB PRN (06:00)
[2025-10-18] MEDS: IOHEXOL-350 100 ML BOTTLE ONE (06:08)
[2025-10-18] MEDS: PIPERACILLIN/TAZO 3.375G/50ML 50 ML IV SCH (06:11)
[2025-10-18 07:47] LABS: TROPONIN I HIGH SENSITIVITY 55 ng/L (3.0-34)
[2025-10-18] MEDS: IPRATROPIUM/ALBUTEROL 0.5-3(2.5)MG/3ML NEB NEB SCH (08:08)
[2025-10-18] MEDS ORDERED: DEXTROSE 50% WATER 50ML SYRINGE IV PRN (09:00)
[2025-10-18] MEDS ORDERED: ONDANSETRON HCL 4MG/2ML INJ IV PRN (09:00)
[2025-10-18] MEDS ORDERED: ACETAMINOPHEN 325MG TABLET PO PRN ×2 (09:00)
[2025-10-18] MEDS ORDERED: LORAZEPAM 0.5MG TABLET PO PRN (09:00)
[2025-10-18] MEDS ORDERED: GUAIFENESIN 200MG/10ML SUGAR FREE UDC PO PRN (09:00)
[2025-10-18] MEDS ORDERED: DOCUSATE SODIUM 100MG CAPSULE PO PRN (09:00)
[2025-10-18 09:55] LABS: VITAMIN B12 SERUM 324 pg/mL (211-911)
[2025-10-18 09:58] LABS: TRIGLYCERIDE 139 mg/dL (0-150)
[2025-10-18 09:59] LABS: CREATINE KINASE MB FRACTION 7.1 ng/mL (0.5-3.6); LDL CHOLESTEROL 117 mg/dL (5-100)
[2025-10-18] MEDS: INSULIN LISPRO 100 UNITS/ML SUBCUT SCH (10:00)
[2025-10-18] MEDS: BLOOD SUGAR DIAGNOSTIC STRIP TEST SCH (10:00)
[2025-10-18 10:03] LABS: T4 FREE 1.25 ng/dL (0.89-1.76)
[2025-10-18] MEDS ORDERED: ENALAPRIL 2.5MG TABLET PO SCH (10:45)
[2025-10-18] MEDS: KCL 20MEQ/100ML PREMIX 100 ML IV ONE (10:54)
[2025-10-18] MEDS: ENOXAPARIN 40MG/0.4ML SYR SUBCUT SCH (10:55)
[2025-10-18] MEDS ORDERED: FENTANYL 2500MCG/250ML PMX 250 ML IV PRN (11:00)
[2025-10-18] MEDS ORDERED: SODIUM CHLORIDE 0.45% 1,000 ML IV ONE (11:00)
[2025-10-18] MEDS ORDERED: PROPOFOL 10MG/ML 100ML 100 ML IV PRN (11:00)
[2025-10-18] MEDS: DEXT 5%/0.45% NACL 1000ML 1,000 ML IV SCH (11:01)
[2025-10-18 11:14] LABS: BG BASE EXCESS -2.3 mmol/L (-2.0-3.0); BG CARBOXYHEMOGLOBIN 0.6 % (0.5-1.5); BG DEOXYHEMOGLOBIN 0.3 % (0.0-5.0); BG FRACTION INSPIRED OXYGEN 80; BG HCO3 ACT 20.4 mmol/L (21.0-28.0); BG METHEMOGLOBIN 0.3 % (0.5-1.5); BG OXYGEN SATURATION 99.7 % (94.0-98.0); BG OXYHEMOGLOBIN 98.8 % (94.0-98.0); BG PCO2 30.5 mmHg (32.0-45.0); BG PEEP (cmH2O) 5.0 cmH2O; BG PH 7.443 (7.350-7.450); BG PO2 362.5 mmHg (83.0-108.0); BG SAMPLE SITE LEFT BRACHIAL; BG TIDAL VOLUME(mL) 450.0 mL; BG TOTAL HEMOGLOBIN 16.9 g/dL (12.0-16.0); BG TOTAL RESPIRATORY RATE 18 b/min; BG VENT MODE VENT - AC; BG VENT RATE 18.0 set
[2025-10-18] MEDS ORDERED: SODIUM CHLORIDE 0.45% 1,000 ML IV SCH (11:15)
[2025-10-18] MEDS: LISINOPRIL 20MG TABLET PO SCH (11:45)
[2025-10-18] MEDS ORDERED: LINA290C MT (17:26)
[2025-10-18] MEDS ORDERED: MONT-39 MT (17:32)
[2025-10-18] MEDS ORDERED: DAPA10TA MT (17:32)
[2025-10-18] MEDS ORDERED: FLUT9.9S BOTHNSTRLS (17:32)
[2025-10-18] MEDS ORDERED: ASPI-1497 MT (17:32)
[2025-10-18] MEDS ORDERED: OMEP20TA23 MT (17:32)
[2025-10-18] MEDS ORDERED: HYDR-4009 MT (17:32)
[2025-10-18] MEDS ORDERED: INSU300I SQ (17:33)
[2025-10-18 18:12] LABS: BASOPHILS % 0.4 % (0.0-2.0); EOSINOPHILS % 0.4 % (0.0-5.0); HEMATOCRIT. 44.5 % (36.0-48.0); HEMOGLOBIN. 14.7 g/dL (12.0-16.0); LYMPHOCYTES % 8.5 % (20.0-50.0); MEAN PLATELET VOLUME 9.7 fl (7.4-10.4); MONOCYTES % 11.5 % (2.0-8.0); NEUTROPHILS % 79.2 % (40.0-76.0); PLATELET 203 x1000/uL (130-400); RED BLOOD CELL COUNT 4.56 mill/uL (4.2-5.4); RED CELL DISTRIBUTION WIDTH 15.2 % (11.6-14.6)
[2025-10-18 18:28] LABS: CREATININE 0.6 mg/dL (0.6-1.0); UREA NITROGEN BLOOD 21 mg/dL (9-23)
[2025-10-18 18:29] LABS: CREATINE KINASE MB FRACTION 8.6 ng/mL (0.5-3.6)
[2025-10-18 18:30] LABS: PHOSPHORUS 2.2 mg/dL (2.5-4.9)
[2025-10-18 18:38] LABS: TROPONIN I HIGH SENSITIVITY 46 ng/L (3.0-34)
[2025-10-18 19:04] LABS: HEPATITIS C AB NON REACTIVE (Neg) (Negative)
[2025-10-18] MEDS: MAGNESIUM 2 G PREMIX 50 ML IV NR (19:17)
[2025-10-18] MEDS: POTASSIUM CHLORIDE 20MEQ/PACKET NG NR (19:17)
[2025-10-18] MEDS: PANTOPRAZOLE SODIUM 40 MG/VIAL IV SCH (20:59)
[2025-10-18] MEDS: INSULIN GLARGINE 100 UNITS/ML SUBCUT SCH (21:03)
[2025-10-18] MEDS: THIAMINE HCL 200 MG in SODIUM CHLORIDE 0.9% 98 ML IV SCH (22:59)
[2025-10-18] MEDS: VANCOMYCIN 1GM PMX (XELLIA) 200 ML IV SCH (23:59)
[2025-10-19] VITALS (89 sets, daily range): BP systolic 100–193; BP diastolic 43–100; PULSE 78–131; RESP 10–31; TEMP 36.5–38.1; O2SAT 95–100
[2025-10-19] MEDS: HYDRALAZINE 20MG/ML VIAL IV PRN (01:35)
[2025-10-19 06:34] LABS: BASOPHILS % 0.4 % (0.0-2.0); EOSINOPHILS % 1.3 % (0.0-5.0); HEMATOCRIT. 41.5 % (36.0-48.0); HEMOGLOBIN. 13.7 g/dL (12.0-16.0); LYMPHOCYTES % 10.2 % (20.0-50.0); MEAN PLATELET VOLUME 10.0 fl (7.4-10.4); MONOCYTES % 11.2 % (2.0-8.0); NEUTROPHILS % 76.9 % (40.0-76.0); PLATELET 186 x1000/uL (130-400); RED BLOOD CELL COUNT 4.27 mill/uL (4.2-5.4); RED CELL DISTRIBUTION WIDTH 15.0 % (11.6-14.6)
[2025-10-19 07:01] LABS: CREATININE 0.5 mg/dL (0.6-1.0)
[2025-10-19 07:02] LABS: TRIGLYCERIDE 146 mg/dL (0-150); UREA NITROGEN BLOOD 18 mg/dL (9-23)
[2025-10-19 07:04] LABS: PHOSPHORUS 1.1 mg/dL (2.5-4.9)
[2025-10-19] MEDS ORDERED: ACETAMINOPHEN 650MG/20.3ML UDC NG PRN (09:45)
[2025-10-19] MEDS ORDERED: FENTANYL 2500MCG/250ML PMX 250 ML IV ONE (09:45)
[2025-10-19] MEDS: ACETAMINOPHEN 650MG/20.3ML UDC GT PRN (09:55)
[2025-10-19] MEDS: PIPERACILLIN/TAZO 3.375G/50ML 50 ML IV SCH (09:56)
[2025-10-19] MEDS: POTASSIUM PHOSPHATE 30 MMOL in SODIUM CHLORIDE 0.9% 490 ML IV SCH (09:57)
[2025-10-19] MEDS ORDERED: FENTANYL 2500MCG/250ML PMX 250 ML IV PRN (10:00)
[2025-10-19 10:16] LABS: BG BASE EXCESS -1.6 mmol/L (-2.0-3.0); BG CARBOXYHEMOGLOBIN 1.4 % (0.5-1.5); BG DEOXYHEMOGLOBIN 1.5 % (0.0-5.0); BG FRACTION INSPIRED OXYGEN 30; BG HCO3 ACT 20.7 mmol/L (21.0-28.0); BG METHEMOGLOBIN 0.3 % (0.5-1.5); BG OXYGEN SATURATION 98.5 % (94.0-98.0); BG OXYHEMOGLOBIN 96.8 % (94.0-98.0); BG PCO2 28.7 mmHg (32.0-45.0); BG PEEP (cmH2O) 5.0 cmH2O; BG PH 7.475 (7.350-7.450); BG PO2 109.2 mmHg (83.0-108.0); BG SAMPLE SITE LEFT RADIAL; BG TIDAL VOLUME(mL) 450.0 mL; BG TOTAL HEMOGLOBIN 14.4 g/dL (12.0-16.0); BG TOTAL RESPIRATORY RATE 26 b/min; BG VENT MODE VENT - AC; BG VENT RATE 18.0 set
[2025-10-19] MEDS ORDERED: PROPOFOL 10MG/ML 100ML 100 ML IV PRN (10:30)
[2025-10-19] MEDS: INSULIN LISPRO 100 UNITS/ML SUBCUT ONE (11:14)
[2025-10-19] MEDS: INSULIN LISPRO 100 UNITS/ML SUBCUT SCH (11:24)
[2025-10-19] MEDS: DEXMEDETOMIDINE 100 ML IV PRN (12:28)
[2025-10-19] MEDS: SODIUM CHLORIDE 0.45% 1,000 ML IV SCH (13:19)
[2025-10-19 14:50] LABS: BG BASE EXCESS -2.6 mmol/L (-2.0-3.0); BG CARBOXYHEMOGLOBIN 0.8 % (0.5-1.5); BG DEOXYHEMOGLOBIN 1.1 % (0.0-5.0); BG FRACTION INSPIRED OXYGEN 30; BG HCO3 ACT 18.8 mmol/L (21.0-28.0); BG METHEMOGLOBIN 0.3 % (0.5-1.5); BG OXYGEN SATURATION 98.9 % (94.0-98.0); BG OXYHEMOGLOBIN 97.8 % (94.0-98.0); BG PCO2 24.9 mmHg (32.0-45.0); BG PEEP (cmH2O) 5.0 cmH2O; BG PH 7.496 (7.350-7.450); BG PO2 117.5 mmHg (83.0-108.0); BG SAMPLE SITE RIGHT RADIAL; BG TOTAL HEMOGLOBIN 14.8 g/dL (12.0-16.0); BG VENT MODE VENT - CPAP
[2025-10-19] MEDS: LORAZEPAM 2MG/ML UD SYRINGE IV PRN (15:36)
[2025-10-19] MEDS: LEVETIRACETAM 500MG/5ML CUP NG NR (16:01)
[2025-10-19] MEDS: LACTATED RINGERS 1,000 ML IV SCH (18:12)
[2025-10-19] MEDS: LEVETIRACETAM 500MG/5ML CUP NG SCH ×2 (18:12→21:46)
[2025-10-19] MEDS ORDERED: LEVETIRACETAM 500MG/5ML CUP NG SCH ×2 (21:00)
[2025-10-19 21:37] LABS: PHOSPHORUS 2.6 mg/dL (2.5-4.9)
[2025-10-20] VITALS (105 sets, daily range): BP systolic 86–184; BP diastolic 43–92; PULSE 72–120; RESP 11–29; TEMP 36.8–37.6; O2SAT 95–100
[2025-10-20 06:01] LABS: BASOPHILS % 0.4 % (0.0-2.0); EOSINOPHILS % 2.1 % (0.0-5.0); HEMATOCRIT. 37.8 % (36.0-48.0); HEMOGLOBIN. 12.4 g/dL (12.0-16.0); LYMPHOCYTES % 9.7 % (20.0-50.0); MEAN PLATELET VOLUME 9.8 fl (7.4-10.4); MONOCYTES % 11.4 % (2.0-8.0); NEUTROPHILS % 76.4 % (40.0-76.0); PLATELET 211 x1000/uL (130-400); RED BLOOD CELL COUNT 3.90 mill/uL (4.2-5.4); RED CELL DISTRIBUTION WIDTH 15.2 % (11.6-14.6)
[2025-10-20 06:27] LABS: CREATININE 0.6 mg/dL (0.6-1.0); TRIGLYCERIDE 123 mg/dL (0-150); UREA NITROGEN BLOOD 12 mg/dL (9-23)
[2025-10-20 06:29] LABS: PHOSPHORUS 2.5 mg/dL (2.5-4.9)
[2025-10-20] MEDS: MAGNESIUM 2 G PREMIX 50 ML IV NR ×2 (09:48→11:38)
[2025-10-20 10:01] LABS: BG BASE EXCESS -1.5 mmol/L (-2.0-3.0); BG CARBOXYHEMOGLOBIN 1.6 % (0.5-1.5); BG DEOXYHEMOGLOBIN 2.1 % (0.0-5.0); BG FRACTION INSPIRED OXYGEN 30; BG HCO3 ACT 20.7 mmol/L (21.0-28.0); BG METHEMOGLOBIN 0.3 % (0.5-1.5); BG OXYGEN SATURATION 97.9 % (94.0-98.0); BG OXYHEMOGLOBIN 96.0 % (94.0-98.0); BG PCO2 29.1 mmHg (32.0-45.0); BG PEEP (cmH2O) 5.0 cmH2O; BG PH 7.470 (7.350-7.450); BG PO2 89.9 mmHg (83.0-108.0); BG SAMPLE SITE RIGHT BRACHIAL; BG TOTAL HEMOGLOBIN 16.0 g/dL (12.0-16.0); BG VENT MODE VENT - CPAP
[2025-10-20] MEDS: INSULIN LISPRO 100 UNITS/ML SUBCUT ONE (10:15)
[2025-10-20] MEDS ORDERED: DEXTROSE 50% WATER 50ML SYRINGE IV PRN ×2 (10:15→20:30)
[2025-10-20] MEDS: VANCOMYCIN 750MG PREMIX 150 ML IV SCH (11:37)
[2025-10-20] MEDS: BLOOD SUGAR DIAGNOSTIC STRIP TEST SCH ×2 (11:38→21:00)
[2025-10-20] MEDS: MIDAZOLAM 100MG/100ML PMX 100 ML IV PRN (11:58)
[2025-10-20] MEDS: INSULIN LISPRO 100 UNITS/ML SUBCUT SCH ×2 (12:27→22:50)
[2025-10-20] MEDS: INSULIN GLARGINE 100 UNITS/ML SUBCUT SCH (22:51)
[2025-10-21] VITALS (99 sets, daily range): BP systolic 104–182; BP diastolic 52–93; PULSE 75–107; RESP 12–30; TEMP 36.7–37.1; O2SAT 93–100
[2025-10-21] MEDS: LACOSAMIDE 100MG/10ML ORAL SOLN GT SCH (01:38)
[2025-10-21 06:38] LABS: BASOPHILS % 0.8 % (0.0-2.0); EOSINOPHILS % 5.4 % (0.0-5.0); HEMATOCRIT. 34.8 % (36.0-48.0); HEMOGLOBIN. 11.4 g/dL (12.0-16.0); LYMPHOCYTES % 17.5 % (20.0-50.0); MEAN PLATELET VOLUME 9.8 fl (7.4-10.4); MONOCYTES % 10.1 % (2.0-8.0); NEUTROPHILS % 66.2 % (40.0-76.0); PLATELET 207 x1000/uL (130-400); RED BLOOD CELL COUNT 3.59 mill/uL (4.2-5.4); RED CELL DISTRIBUTION WIDTH 15.3 % (11.6-14.6)
[2025-10-21 07:07] LABS: CREATININE 0.5 mg/dL (0.6-1.0); UREA NITROGEN BLOOD 9 mg/dL (9-23)
[2025-10-21 07:09] LABS: PHOSPHORUS 1.8 mg/dL (2.5-4.9)
[2025-10-21] MEDS: INSULIN LISPRO 100 UNITS/ML SUBCUT NR (09:40)
[2025-10-21] MEDS ORDERED: DEXTROSE 50% WATER 50ML SYRINGE IV PRN (10:00)
[2025-10-21] MEDS: INSULIN GLARGINE 100 UNITS/ML SUBCUT NR (11:19)
[2025-10-21] MEDS: INSULIN LISPRO 100 UNITS/ML SUBCUT SCH (11:19)
[2025-10-21] MEDS: POTASSIUM PHOSPHATE 20 MMOL in DEXT 5% WATER 243.3333 ML IV NR (11:29)
[2025-10-21] MEDS ORDERED: INSULIN LISPRO 100 UNITS/ML SUBCUT SCH (12:00)
[2025-10-21] MEDS: INSULIN GLARGINE 100 UNITS/ML SUBCUT SCH (21:40)
[2025-10-22] VITALS (95 sets, daily range): BP systolic 82–188; BP diastolic 46–111; PULSE 69–107; RESP 13–30; TEMP 36.1–37.2; O2SAT 96–100
[2025-10-22] MEDS: CLONIDINE 0.1MG TABLET PO PRN (01:38)
[2025-10-22 05:56] LABS: BASOPHILS % 0.3 % (0.0-2.0); EOSINOPHILS % 3.0 % (0.0-5.0); HEMATOCRIT. 32.9 % (36.0-48.0); HEMOGLOBIN. 11.1 g/dL (12.0-16.0); LYMPHOCYTES % 17.8 % (20.0-50.0); MEAN PLATELET VOLUME 9.7 fl (7.4-10.4); MONOCYTES % 12.2 % (2.0-8.0); NEUTROPHILS % 66.7 % (40.0-76.0); PLATELET 216 x1000/uL (130-400); RED BLOOD CELL COUNT 3.42 mill/uL (4.2-5.4); RED CELL DISTRIBUTION WIDTH 15.0 % (11.6-14.6)
[2025-10-22 05:57] LABS: CREATININE 0.5 mg/dL (0.6-1.0); UREA NITROGEN BLOOD 6 mg/dL (9-23)
[2025-10-22 06:00] LABS: PHOSPHORUS 2.4 mg/dL (2.5-4.9)
[2025-10-22] MEDS: MAGNESIUM 2 G PREMIX 50 ML IV SCH ×2 (08:30→11:13)
[2025-10-22] MEDS: POTASSIUM PHOSPHATE 20 MMOL in DEXT 5% WATER 243.3333 ML IV SCH (11:12)
[2025-10-22] MEDS: AMLODIPINE 5MG TABLET PO SCH (11:13)
[2025-10-22] MEDS ORDERED: PROPOFOL 10MG/ML 100ML 100 ML IV SCH (17:40)
[2025-10-23] VITALS (100 sets, daily range): BP systolic 105–205; BP diastolic 51–99; PULSE 68–108; RESP 11–30; TEMP 36.7–37.2; O2SAT 96–99
[2025-10-23 07:26] LABS: CREATININE 0.4 mg/dL (0.6-1.0)
[2025-10-23 07:27] LABS: TRIGLYCERIDE 102 mg/dL (0-150); UREA NITROGEN BLOOD < 5 mg/dL (9-23)
[2025-10-23 07:29] LABS: PHOSPHORUS 2.8 mg/dL (2.5-4.9)
[2025-10-23 07:31] LABS: FOLIC ACID (FOLATE) SERUM 7.07 ng/mL (>5.38)
[2025-10-23 12:04] LABS: BASOPHILS % 0.6 % (0.0-2.0); EOSINOPHILS % 3.1 % (0.0-5.0); HEMATOCRIT. 37.4 % (36.0-48.0); HEMOGLOBIN. 12.7 g/dL (12.0-16.0); LYMPHOCYTES % 13.8 % (20.0-50.0); MEAN PLATELET VOLUME 8.9 fl (7.4-10.4); MONOCYTES % 10.9 % (2.0-8.0); NEUTROPHILS % 71.6 % (40.0-76.0); PLATELET 263 x1000/uL (130-400); RED BLOOD CELL COUNT 3.93 mill/uL (4.2-5.4); RED CELL DISTRIBUTION WIDTH 14.8 % (11.6-14.6)
[2025-10-23] MEDS: HYDRALAZINE HCL 25MG TABLET PO SCH (13:57)
[2025-10-23] MEDS ORDERED: HYDRALAZINE HCL 25MG TABLET PO SCH (14:00)
[2025-10-23] MEDS: MIDAZOLAM 100MG/100ML PMX 100 ML IV SCH (20:54)
[2025-10-23] MEDS ORDERED: MIDAZOLAM 100MG/100ML PMX 100 ML IV SCH (21:00)
[2025-10-24] VITALS (92 sets, daily range): BP systolic 106–186; BP diastolic 50–81; PULSE 70–108; RESP 11–22; TEMP 36.7–37.2; O2SAT 95–100
[2025-10-24 07:25] LABS: PLATELET 275 x1000/uL (130-400); RED BLOOD CELL COUNT 3.94 mill/uL (4.2-5.4); RED CELL DISTRIBUTION WIDTH 14.5 % (11.6-14.6)
[2025-10-24 07:38] LABS: UREA NITROGEN BLOOD 7 mg/dL (9-23)
[2025-10-24 07:39] LABS: CREATININE 0.6 mg/dL (0.6-1.0)
[2025-10-24 07:40] LABS: PHOSPHORUS 3.0 mg/dL (2.5-4.9)
[2025-10-24] MEDS ORDERED: MIDAZOLAM 100MG/100ML PMX 100 ML IV PRN (20:15)
[2025-10-25] VITALS (91 sets, daily range): BP systolic 92–182; BP diastolic 34–87; PULSE 67–94; RESP 0–23; TEMP 36.6–37.3; O2SAT 95–99
[2025-10-25] MEDS: IPRATROPIUM/ALBUTEROL 0.5-3(2.5)MG/3ML NEB HHN PRN (12:13)
[2025-10-25 12:55] LABS: BG BASE EXCESS 2.6 mmol/L (-2.0-3.0); BG CARBOXYHEMOGLOBIN 1.2 % (0.5-1.5); BG DEOXYHEMOGLOBIN 5.4 % (0.0-5.0); BG FRACTION INSPIRED OXYGEN 30; BG HCO3 ACT 25.8 mmol/L (21.0-28.0); BG METHEMOGLOBIN 0.3 % (0.5-1.5); BG OXYGEN SATURATION 94.5 % (94.0-98.0); BG OXYHEMOGLOBIN 93.1 % (94.0-98.0); BG PCO2 35.5 mmHg (32.0-45.0); BG PEEP (cmH2O) 5.0 cmH2O; BG PH 7.480 (7.350-7.450); BG PO2 66.6 mmHg (83.0-108.0); BG SAMPLE SITE RIGHT RADIAL; BG TIDAL VOLUME(mL) 450.0 mL; BG TOTAL HEMOGLOBIN 13.1 g/dL (12.0-16.0); BG VENT MODE VENT - SIMV; BG VENT RATE 12.0 set
[2025-10-26] VITALS (81 sets, daily range): BP systolic 83–204; BP diastolic 46–129; PULSE 45–104; RESP 12–33; TEMP 36.8–37.6; O2SAT 95–100
[2025-10-26 05:38] LABS: CREATININE 0.6 mg/dL (0.6-1.0); UREA NITROGEN BLOOD 11 mg/dL (9-23)
[2025-10-26 05:40] LABS: PHOSPHORUS 2.6 mg/dL (2.5-4.9)
[2025-10-26 05:54] LABS: BASOPHILS % 0.8 % (0.0-2.0); EOSINOPHILS % 2.4 % (0.0-5.0); HEMATOCRIT. 38.1 % (36.0-48.0); HEMOGLOBIN. 12.7 g/dL (12.0-16.0); LYMPHOCYTES % 13.5 % (20.0-50.0); MEAN PLATELET VOLUME 9.0 fl (7.4-10.4); MONOCYTES % 11.8 % (2.0-8.0); NEUTROPHILS % 71.5 % (40.0-76.0); PLATELET 309 x1000/uL (130-400); RED BLOOD CELL COUNT 4.00 mill/uL (4.2-5.4); RED CELL DISTRIBUTION WIDTH 15.1 % (11.6-14.6)
[2025-10-26] MEDS: POTASSIUM CHLORIDE 20MEQ/PACKET NG NR (09:51)
[2025-10-26] MEDS: SODIUM CHLORIDE 0.9% 500 ML IV ONE (17:36)
[2025-10-26] MEDS: FENTANYL CITRATE/PF 50MCG/ML 2ML VIAL IV SCH (17:39)
[2025-10-26] MEDS: NOREPINEPHRINE 8MG/250ML PMX 250 ML IV PRN (17:54)
[2025-10-26 18:35] LABS: BG BASE EXCESS 0.8 mmol/L (-2.0-3.0); BG CARBOXYHEMOGLOBIN 0.6 % (0.5-1.5); BG DEOXYHEMOGLOBIN 2.1 % (0.0-5.0); BG FRACTION INSPIRED OXYGEN 30; BG HCO3 ACT 24.4 mmol/L (21.0-28.0); BG METHEMOGLOBIN 0.3 % (0.5-1.5); BG OXYGEN SATURATION 97.9 % (94.0-98.0); BG OXYHEMOGLOBIN 97.0 % (94.0-98.0); BG PCO2 35.8 mmHg (32.0-45.0); BG PEEP (cmH2O) 5.0 cmH2O; BG PH 7.451 (7.350-7.450); BG PO2 98.4 mmHg (83.0-108.0); BG SAMPLE SITE RIGHT RADIAL; BG TIDAL VOLUME(mL) 450.0 mL; BG TOTAL HEMOGLOBIN 13.5 g/dL (12.0-16.0); BG VENT MODE VENT - AC; BG VENT RATE 12.0 set
[2025-10-26 21:45] LABS: GLUCOSE CSF 128 mg/dL (41-75)
[2025-10-26 23:32] LABS: CSF TOTAL VOLUME 11.0 mL
[2025-10-26 23:33] LABS: CSF APPEARANCE CLEAR (CLEAR)
[2025-10-27] VITALS (57 sets, daily range): BP systolic 91–188; BP diastolic 45–148; PULSE 51–107; RESP 12–25; TEMP 36.7–36.9; O2SAT 98–100
[2025-10-27 05:51] LABS: PLATELET 324 x1000/uL (130-400); RED BLOOD CELL COUNT 3.83 mill/uL (4.2-5.4); RED CELL DISTRIBUTION WIDTH 14.8 % (11.6-14.6)
[2025-10-27 06:36] LABS: CREATININE 0.6 mg/dL (0.6-1.0)
[2025-10-27 06:37] LABS: UREA NITROGEN BLOOD 16 mg/dL (9-23)
[2025-10-27] MEDS: LACTATED RINGERS 1,000 ML IV ONE (09:39)
[2025-10-27 10:36] LABS: PHOSPHORUS 3.0 mg/dL (2.5-4.9)
== END 2025-10-27 12:15 | disposition short-term general hospital (02) | DRG 870 ==
LOC: ER 02:50 → MICUNO 05:12 → EDBEDREQTM 05:21 → EDBEDREQSVC 05:21 → EDBEDREQ 05:21 → ENRESERV 07:03
PROVIDERS: ADMIT Internal Medicine; ATTEND Internal Medicine
PROC: 5A1955Z Respiratory Ventilation, Greater than 96 Consecutive Hours (ICD-10-PCS; principal; 2025-10-18)
PROC: 0BH17EZ Insertion of Endotracheal Airway into Trachea, Via Natural or Artificial Opening (ICD-10-PCS; 2025-10-18)
PROC: 4A00X4Z Measurement of Central Nervous Electrical Activity, External Approach (ICD-10-PCS; 2025-10-19)
PROC: 02HV33Z Insertion of Infusion Device into Superior Vena Cava, Percutaneous Approach (ICD-10-PCS; 2025-10-20)
PROC: B548ZZA Ultrasonography of Superior Vena Cava, Guidance (ICD-10-PCS; 2025-10-20)
PROC: 4A00X4Z Measurement of Central Nervous Electrical Activity, External Approach (ICD-10-PCS; 2025-10-22)
DX: A41.9 Sepsis, unspecified organism (principal); G92.8 Other toxic encephalopathy; I21.A1 Myocardial infarction type 2; J96.01 Acute respiratory failure with hypoxia; N17.0 Acute kidney failure with tubular necrosis; E11.52 Type 2 diabetes mellitus with diabetic peripheral angiopathy with gangrene; G40.901 Epilepsy, unspecified, not intractable, with status epilepticus; B96.89 Other specified bacterial agents as the cause of diseases classified elsewhere; J44.9 Chronic obstructive pulmonary disease, unspecified; I10 Essential (primary) hypertension; E87.0 Hyperosmolality and hypernatremia; L97.419 Non-pressure chronic ulcer of right heel and midfoot with unspecified severity; D75.1 Secondary polycythemia; E78.5 Hyperlipidemia, unspecified; E87.6 Hypokalemia; E83.42 Hypomagnesemia; I45.10 Unspecified right bundle-branch block; E11.621 Type 2 diabetes mellitus with foot ulcer; L97.519 Non-pressure chronic ulcer of other part of right foot with unspecified severity; F17.210 Nicotine dependence, cigarettes, uncomplicated; F41.9 Anxiety disorder, unspecified; K21.9 Gastro-esophageal reflux disease without esophagitis; R33.9 Retention of urine, unspecified; S60.521A Blister (nonthermal) of right hand, initial encounter; Z78.1 Physical restraint status; Z79.4 Long term (current) use of insulin; Z79.82 Long term (current) use of aspirin; Z79.84 Long term (current) use of oral hypoglycemic drugs; Z79.899 Other long term (current) drug therapy; Z86.73 Personal history of transient ischemic attack (TIA), and cerebral infarction without residual deficits; X58.XXXA Exposure to other specified factors, initial encounter; Y93.89 Activity, other specified; Y92.89 Other specified places as the place of occurrence of the external cause; Y99.8 Other external cause status
CPT/HCPCS: 31500; 31720; 36415; 36573; 36600; 71045; 71250; 71275; 73120; 74176; 80048; 80061; 80076; 80202; 80305; 80320; 80339; 81003; 82010; 82140; 82375; 82542; 82550; 82553; 82607; 82746; 82805; 82945; 82962; 83036; 83605; 83735; 83880; 83916; 83930; 84100; 84132; 84145; 84157; 84439; 84443; 84478; 84484; 85025; 85027; 85379; 86592; 86635; 86663; 86705; 86777; 86778; 86788; 86789; 87070; 87116; 87252; 87255; 87340; 87529; 87899; 93005; 93306; 93970; 94002; 94003; 94070; 94640; 94664; 94760; 95816; 96365; 98960; 99291; 99292; C1725; J0360; J1650; J1815; J2060; J2250; J2470; J2543; J3010; J3373; J3411; J3475; J3480; J3490; J7030; J7040; J7050; J7060; J7120; Q9967; G0480